=== PATIENT | female | born 1995 | race American Indian/Alaskan Native ===

== ENCOUNTER 2017-03-28 17:16 | Emergency (ER) | payer BC ==
[2017-03-28 17:22] VITALS: PULSE 91; TEMP 98.8; O2SAT 100
[2017-03-28] MEDS ORDERED: Naproxen 550 mg Tab PO STA (17:40)
[2017-03-28] MEDS ORDERED: Naproxen 550 mg Tab PO ONE (17:43)
--- NOTE | 2017-03-28 18:02 | RAD ---
PROCEDURE: Radiographs of the left elbow. HISTORY: Pain s/p injury yesterday COMPARISON: None available. FINDINGS: BONES: No acute displaced fracture. JOINTS: No dislocation. SOFT TISSUES: Unremarkable. No evidence of radiopaque foreign body. JOINT EFFUSION: No significant joint effusion. OTHER FINDINGS: None IMPRESSION: No acute displaced fracture, dislocation, or significant joint effusion identified. If symptoms persist, or if there is continued clinical concern, x-ray follow-up in 7-10 days should be considered.
--- NOTE | 2017-03-28 18:08 | C.PDOC ---
History Of Present Illness Pt fell from a chair at work yesterday injuring her left elbow. She c/o tingling in left forearm. Time Seen by Provider: 03/28/17 17:30 Chief Complaint (Nursing): Upper Extremity Problem/Injury History Per: Patient Onset/Duration Of Symptoms: Days (1) Current Symptoms Are (Timing): Still Present Quality: "Pain" Severity: Moderate Exacerbating Factor(s): Strenuous Use Of Affected Area, Movement Additional History Per: Prior Records Past Medical History Reviewed: Historical Data, Nursing Documentation, Vital Signs Vital Signs: Last Vital Signs Temp 98.8 F 03/28/17 17:17 Pulse 91 H 03/28/17 17:17 Resp 16 03/28/17 17:17 BP 145/90 03/28/17 17:17 Pulse Ox 100 03/28/17 18:10 - Medical History PMH: Anemia, Sickle Cell Disease (trait) Surgical History: No Surg Hx - [facility] Procedures PACKED CELL TRANSFUSION (10/14/14) Family History: States: Unknown Family Hx - Social History Hx Tobacco Use: No Hx Alcohol Use: No Hx Substance Use: No - Immunization History Hx Tetanus Toxoid Vaccination: No Hx Influenza Vaccination: No Hx Pneumococcal Vaccination: No Review Of Systems Except As Marked, All Systems Reviewed And Found Negative. Constitutional: Negative for: Fever, Weakness Cardiovascular: Negative for: Chest Pain Respiratory: Negative for: Shortness of Breath Gastrointestinal: Negative for: Vomiting, Abdominal Pain Musculoskeletal: Negative for: Neck Pain, Shoulder Pain, Back Pain, Hand Pain Skin: Negative for: Rash Neurological: Negative for: Weakness, Seizures, Altered Mental Status Physical Exam - Physical Exam Appears: Non-toxic, No Acute Distress Skin: Normal Color, Warm, Dry, No Rash Head: Atraumatic, Normacephalic Eye(s): bilateral: PERRL, EOMI Neck: Normal ROM, No Midline Cervical Tenderness, No Step Off Deformity, Supple Extremity: Normal ROM, Tenderness (mild at medial side of left elbow. There is some irritation when I tap the ulnar nerve at the left elbow.), Capillary Refill (wnl), No Deformity, No Swelling Extremity: Bilateral: Normal Color And Temperature Pulses: Left Radial: Normal Neurological/Psych: Oriented x3, Normal Motor, Normal Sensation ED Course And Treatment O2 Sat by Pulse Oximetry: 100 Pulse Ox Interpretation: Normal - Other Rad Left elbow x-rays X-Ray: Viewed By Me, Read By Radiologist Interpretation: IMPRESSION: No acute displaced fracture, dislocation, or significant joint effusion identified. Progress Note: Pt's left arm was placed in the sling by me. Reassessment Condition: Improved Disposition Counseled Patient/Family Regarding: Studies Performed, Diagnosis, Need For Followup, Rx Given - Disposition Referrals: Tr Tamayo DO [Staff Provider] - Yfn Beltre III, MD [Staff Provider] - Disposition: HOME/ ROUTINE Disposition Time: 18:15 Condition: STABLE Additional Instructions: Use sling for as instructed for comfort. Follow up with an orthopedic doctor in 1 week if still symptomatic. Return to the ER if you develop redness, swelling, weakness, worsening of symptoms or if you have any other concerns. Prescriptions: Naproxen [Naprosyn] 1 tab PO BID PRN #20 tab PRN Reason: Pain Instructions: Elbow Sprain (ED) Forms: [facility] [employer] (Icelandic) - Clinical Impression Clinical Impression: Ulnar neuropathy at elbow of left upper extremity, Fall from chair
[2017-03-28 18:29] VITALS: BP 138/85; RESP 15
== END 2017-03-28 18:28 | disposition home or self-care (01) ==
LOC: C.ER 17:16
DX: G56.22 Lesion of ulnar nerve, left upper limb (principal); W07.XXXA Fall from chair, initial encounter; Y93.9 Activity, unspecified; Y92.89 Other specified places as the place of occurrence of the external cause

== ENCOUNTER 2017-06-03 10:59 | Observation (INO) | payer BC ==
[2017-06-03] MEDS ORDERED: Sodium Chloride 0.9% 1,000 ML IV ONE (11:31)
--- NOTE | 2017-06-03 11:43 | C.PDOC ---
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 pt c/o bilateral tinnitus. 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 Time Seen by Provider: 06/03/17 11:24 Chief Complaint (Nursing): ENT Problem History Per: Patient History/Exam Limitations: None Onset/Duration Of Symptoms: Days (1) Current Symptoms Are (Timing): Worse Quality (Ear): Pain W/Touch, Other (tinnitus) Quality (Mouth/Throat): Tenderness, Swelling, Redness Symptoms Have Been: Continuous Pain Scale Rating Of: 8 Anticoagulant/Antiplatlet Use?: No Recent Aspirin Use: No Past Medical History Reviewed: Historical Data, Nursing Documentation, Vital Signs Vital Signs: Last Vital Signs Temp 99.3 F 06/03/17 11:01 Pulse 92 H 06/03/17 12:41 Resp 16 06/03/17 12:41 BP 138/71 06/03/17 12:41 Pulse Ox 100 06/03/17 14:09 - Medical History PMH: Anemia, Sickle Cell Disease (trait) Denies: Chronic Kidney Disease - [facility] Procedures PACKED CELL TRANSFUSION (10/14/14) Family History: States: Unknown Family Hx - Social History Hx Tobacco Use: No Hx Alcohol Use: No Hx Substance Use: No - Immunization History Hx Tetanus Toxoid Vaccination: No Hx Influenza Vaccination: No Hx Pneumococcal Vaccination: No Review Of Systems Constitutional: Negative for: Fever, Chills ENT: Positive for: Ear Pain, Throat Pain, Throat Swelling. Negative for: Ear Discharge, Nose Discharge Cardiovascular: Negative for: Chest Pain, Palpitations Respiratory: Negative for: Cough Neurological: Negative for: Weakness, Numbness Physical Exam - Physical Exam Appears: Other (bariatric female in obvious discomfort) Skin: Warm, Dry Head: Atraumatic, Normacephalic Eye(s): bilateral: Normal Inspection Ear(s): Left: Normal, Right: TM Erythema (mild erythema to tm and moderate erythema in canal) Nose: No Discharge Oral Mucosa: Moist Tongue: Normal Appearing, No Swelling Lips: Normal Appearing, No Swelling Throat: No Drooling, Other (markedly enlarged bilateral tonsils with mass posterior to right tonsil, tonsils not touching, no trismus. voice muffled. ) Lymphatic: Adenopathy (tender bilateral submandibular adenopathy) Cardiovascular: Rhythm Regular (tachycardic) Respiratory: No Decreased Breath Sounds, No Rales, No Rhonchi, No Wheezing ED Course And Treatment - Laboratory Results Result Diagrams: 06/03/17 12:05 06/03/17 12:05 O2 Sat by Pulse Oximetry: 100 Medical Decision Making Medical Decision Makin21 y/o female with muffled voice markedly enlarged tonsils; ct soft tissue neck with iv contrast to r/o captain canner[employer] tender [address] Riley. will admit pt to medicine. Discussed with Dr Rangel, (admits for Dr Tamayo), will admit to him. Disposition Discussed With .: Sarah Beth Rangel Doctor Will See Patient In The: Hospital - Disposition Disposition Time: 14:09 Condition: STABLE - Clinical Impression Clinical Impression: Abscess, peritonsillar
[2017-06-03 12:09] LABS: BASO # 0.1 K/uL (0.0-0.2); BASO % 0.4 % (0.0-2.0); EOS # 0.1 K/uL (0.0-0.7); EOS % 0.6 % (0.0-4.0); HEMATOCRIT 32.3 % (34.0-47.0); LYMPH # 1.8 K/uL (1.0-4.3); MEAN CELL VOLUME 67.9 fL (81.0-99.0); MEAN CORPUSCULAR HGB CONC 32.4 g/dL (33.0-37.0); MEAN PLATELET VOLUME 7.7 fL (7.2-11.7); MONO # 1.3 K/uL (0.0-0.8); MONO % 7.9 % (0.0-10.0); RED CELL DISTRIBUTION WIDTH 18.6 % (11.5-14.5); WHITE BLOOD COUNT 16.6 K/uL (4.8-10.8)
[2017-06-03 12:16] LABS: CHLORIDE 101 mmol/L (98-107)
[2017-06-03 12:17] LABS: POTASSIUM 3.9 mmol/L (3.6-5.2); SODIUM 135 mmol/L (132-148)
[2017-06-03 12:19] LABS: AST/SGOT 23 U/L (14-36); BILIRUBIN,TOTAL 0.5 mg/dL (0.2-1.3); CARBON DIOXIDE 26 mmol/L (22-30); GFR AFRICAN-AMERICAN > 60
[2017-06-03 12:20] LABS: ALB/GLOB RATIO 0.8 (1.0-2.1); ALKALINE PHOSPHATASE 137 U/L (38-126); ALT/SGPT 29 U/L (9-52); BLOOD UREA NITROGEN 5 mg/dL (7-17); CALCIUM 8.8 mg/dl (8.6-10.4); GLUCOSE,RANDOM 102 mg/dL (65-105); TOTAL PROTEIN 8.8 g/dL (6.3-8.3)
[2017-06-03] MEDS ORDERED: Iohexol 300 100 ML IJ ONE (12:55)
--- NOTE | 2017-06-03 13:48 | CT ---
PROCEDURE: CT NECK WITH CONTRAST HISTORY: right tonsillar swelling COMPARISON: None TECHNIQUE: CT of the neck with intravenous contrast. Coronal and sagittal reformats generated. Intravenous contrast dose: 100 mL of Omnipaque 300 Radiation dose: DLP 568.51 mGy-cm This CT exam was performed using one or more of the following dose reduction techniques: Automated exposure control, adjustment of the mA and/or kV according to patient size, and/or use of iterative reconstruction technique. FINDINGS: NASOPHARYNX: Diffuse thickening of the posterior nasopharynx is noted SUPRAHYOID NECK: There is moderate enlargement of the right tonsil associated with foci of low-attenuation likely represent phlegmon. There is mild to moderate narrowing of the upper airway and right oropharynx wall thickening. Alteration of the right vallecula and right piriform sinus is noted could be due to secretion or mucosal thickening. Otherwise the naso oral pharynx is unremarkable. INFRAHYOID NECK: Unremarkable larynx, hypopharynx, and supraglottic space. Vocal cords intact. MASS: None. GLANDS: Parotid and submandibular glands unremarkable. Normal size thyroid gland, without nodule. LYMPH NODES: [id number] enlarged upper neck lymph nodes seen right more than left. CERVICAL SPINE: No fracture or focal lesion. VASCULAR STRUCTURES: Unremarkable. OTHER FINDINGS: None. IMPRESSION: Moderate enlargement of the right tonsil. Focal low attenuation seen at the region of the right tonsil likely represent phlegmon. The possibility of an early abscess formation is not totally excluded. Mucosal thickening and secretions seen at the right aspect of the oropharynx as described above. [id number] enlarged upper neck lymph nodes specially at the right sided level 2 noted.
[2017-06-03 17:15] VITALS: RESP 20
--- NOTE | 2017-06-03 19:45 | CP.PCM.HP ---
Past Patient History - Past Medical History & Family History Past Medical History?: Yes - Past Social History Smoking Status: Never Smoked - CARDIAC Hx Cardiac Disorders: No - PULMONARY Hx Respiratory Disorders: No - NEUROLOGICAL Hx Neurological Disorder: No - HEENT Other/Comment: pt states chronic sore throats - RENAL Hx Chronic Kidney Disease: No - ENDOCRINE/METABOLIC Hx Endocrine Disorders: No - HEMATOLOGICAL/ONCOLOGICAL Hx Anemia: Yes - INTEGUMENTARY Hx Dermatological Problems: No - MUSCULOSKELETAL/RHEUMATOLOGICAL Hx Musculoskeletal Disorders: No Hx Falls: No - GASTROINTESTINAL Hx Gastrointestinal Disorders: No - GENITOURINARY/GYNECOLOGICAL Hx Genitourinary Disorders: Yes Other/Comment: hx of PCOS - PSYCHIATRIC Hx Psychophysiologic Disorder: No Hx Substance Use: No - SURGICAL HISTORY Hx Surgeries: Yes Hx Dilation and Curettage: Yes Other/Comment: ADAMARIS - ANESTHESIA Hx Anesthesia: Yes Hx Anesthesia Reactions: No Hx Malignant Hyperthermia: No Meds Allergies/Adverse Reactions: Allergies Allergy/AdvReac Type Severity Reaction Status Date / Time CHOCOLATE Allergy Severe ANAPHYLAXIS Uncoded 06/03/17 11:04 Results - Vital Signs Recent Vital Signs: Last Vital Signs Temp 99.3 F 06/03/17 17:14 Pulse 94 H 06/03/17 17:14 Resp 20 06/03/17 17:14 BP 130/72 06/03/17 17:14 Pulse Ox 98 06/03/17 17:14 - Labs Result Diagrams: 06/03/17 12:05 06/03/17 12:05 Labs: Laboratory Results - last 24 hr 06/03/17 06/03/17 06/03/17 11:25 12:05 12:05 WBC 16.6 H RBC 4.76 Hgb 10.5 L Hct 32.3 L MCV 67.9 L D MCH 22.0 L MCHC 32.4 L RDW 18.6 H Plt Count 360 MPV 7.7 Neut % (Auto) 80.1 H Lymph % (Auto) 11.0 L Meade % (Auto) 7.9 Eos % (Auto) 0.6 Baso % (Auto) 0.4 Neut # 13.3 H Lymph # 1.8 Meade # 1.3 H Eos # 0.1 Baso # 0.1 Differential Comment Sodium 135 Potassium 3.9 Chloride 101 Carbon Dioxide 26 Anion Gap 12 BUN 5 L Creatinine 0.5 L Est GFR ( Amer) > 60 Est GFR (Non-Af Amer) > 60 Random Glucose 102 Calcium 8.8 Total Bilirubin 0.5 AST 23 ALT 29 Alkaline Phosphatase 137 H Total Protein 8.8 H Albumin 3.8 Globulin 5.0 H Albumin/Globulin Ratio 0.8 L Grp A Beta Strep Ag Negative
[2017-06-03] MEDS: Clindamycin 600mg/50ml NS 600 MG/50 ML BAG IVPB SCH (19:58)
[2017-06-03] MEDS ORDERED: Clindamycin 600 MG in Sodium Chloride 0.9% 100 ML IV SCH (20:00)
[2017-06-03] MEDS: Acetaminophen 650mg/20.3ml solution UD PO PRN (21:29)
[2017-06-04 01:01] VITALS: O2SAT 100
[2017-06-04] MEDS: Clindamycin 600mg/50ml NS 600 MG/50 ML BAG IVPB SCH ×2 (04:12→12:37)
[2017-06-04] MEDS ORDERED: Lidocaine 1%/Epinephrine 1:100000 30 ml vial IJ ONE (08:30)
[2017-06-04] MEDS: Acetaminophen 650mg/20.3ml solution UD PO PRN ×2 (09:08→15:07)
--- NOTE | 2017-06-04 10:59 | OP ---
PROCEDURE DATE: 06/04/2017 PREOPERATIVE DIAGNOSIS: Right peritonsillar abscess. POSTOPERATIVE DIAGNOSIS: Right peritonsillar abscess. PROCEDURE: Incision and drainage of right peritonsillar abscess. SIGNIFICANT FINDINGS: Right peritonsillar abscess. DESCRIPTION OF PROCEDURE: The patient was placed in a seated position. Right peritonsillar area was injected with lidocaine with epinephrine. An incision was made in the right peritonsillar area using #11 blade, clamp dissected dissection done, pus was noted coming out, loculations were broken with the clamp and bleeding was controlled with time. The patient tolerated the procedure well. Rocky Riley MD MTDD
--- NOTE | 2017-06-04 14:06 | CP.PCM.PN ---
Subjective - Date & Time of Evaluation Date of Evaluation: 06/04/17 Time of Evaluation: 14:03 - Subjective Subjective: PT SEEN AND EXAMINED TODAY, RESPIRATION EASY AND UNLABORED. NAD Objective - Vital Signs/Intake and Output Vital Signs (last 24 hours): Temp Pulse Resp BP Pulse Ox 98 F 84 20 110/67 100 06/04/17 08:01 06/04/17 08:01 06/04/17 08:01 06/04/17 08:01 06/04/17 08:01 Intake and Output: 06/04/17 06/04/17 06:59 18:59 Intake Total 550 Balance 550 - Medications Medications: Current Medications Acetaminophen (Tylenol 650mg/20.3ml Solution Ud) 650 mg PO Q6 PRN PRN Reason: Pain, moderate (4-7) Last Admin: 06/04/17 09:08 Dose: 650 mg Clindamycin Phosphate (Cleocin In Normal Saline Addvantage) 600 mg in 50 mls @ 100 mls/hr IVPB Q8H AIDEE Last Admin: 06/04/17 12:37 Dose: 100 mls/hr Pneumococcal Polyvalent Vaccine (Pneumovax 23 Vaccine) 0.5 ml IM .ONCE ONE Stop: 06/06/17 10:01 - Labs Labs: 06/03/17 12:05 06/03/17 12:05 Assessment and Plan - Assessment and Plan (Free Text) Plan: 21 Y/O FEMALE ADMITTED FOR PERITONSILLAR ABSCESS I & D DONE BY DR GARG TODAY- PT TOLERATED WELL TOLERATING LIQUID DIET, NO DROOLING, AFEBRIL, NON-TOXIC PT CLEARED FOR D/C PER DR GARG AND DR HINSON CLINDAMYCIN 300 MG PO QID FOR 7 DAYS - PER DR HINSON F/U WITH PMD AND ENT RETURN TO ER FOR ANY WORSENING S/S AGREE, VERBALIZE UNDERSTANDING
[2017-06-04 16:46] VITALS: BP 125/81; PULSE 73; TEMP 98.7
[2017-06-04] MEDS ORDERED: Pneumococcal 23-Valent Vaccine IM ONE (17:00)
[2017-06-06] MEDS ORDERED: Influenza Vaccine 60 mcg/0.5 mL SYR (4YR UP) IM ONE (10:00)
== END 2017-06-04 17:34 | disposition home or self-care (01) ==
LOC: C.ER 10:59 → C.9E 14:08 → C.3T 16:12
PROVIDERS: ADMIT Internal Medicine Critical Care Medicine; ATTEND Internal Medicine Critical Care Medicine
DX: J36 Peritonsillar abscess (principal); R13.10 Dysphagia, unspecified; J35.1 Hypertrophy of tonsils; D57.1 Sickle-cell disease without crisis
CPT/HCPCS: 42700; 70491; 80053; 85025; 87040; 87070; 87430; 96365; 96366; 96375; 99285; G0378; J1100; J1885; J7040; Q9967

== ENCOUNTER → 2017-10-09 19:29 | Emergency (ER) | payer BC | END | disposition left against medical advice (07) | LOC: C.ER 19:29 | DX: Z02.89 Encounter for other administrative examinations (principal); N93.9 Abnormal uterine and vaginal bleeding, unspecified ==

== ENCOUNTER 2018-01-10 09:50 | Emergency (ER) | payer BC ==
[2018-01-10 09:55] VITALS: RESP 20
--- NOTE | 2018-01-10 10:27 | C.PDOC ---
History Of Present Illness 22 years old female with history of anemia presents to the ED complaining of sharp pain and tingling to her left index finger that radiates to her writs onset 4 days. patient reports she has taken her fake nail off yesterday. She denies any injury. PMD: Tr Tamayo Time Seen by Provider: 01/10/18 10:09 Chief Complaint (Nursing): Finger,Hand,&Wrist History Per: Patient History/Exam Limitations: no limitations Onset/Duration Of Symptoms: Days (4) Quality: Sharp Past Medical History Reviewed: Historical Data, Nursing Documentation, Vital Signs Vital Signs: Last Vital Signs Temp 98.4 F 01/10/18 10:31 Pulse 88 01/10/18 10:31 Resp 20 01/10/18 10:31 BP 142/87 01/10/18 10:31 Pulse Ox 100 01/10/18 10:31 - Medical History PMH: Anemia, Sickle Cell Disease (trait) Denies: Chronic Kidney Disease Surgical History: No Surg Hx - [facility] Procedures PACKED CELL TRANSFUSION (10/14/14) Family History: States: Unknown Family Hx - Social History Hx Tobacco Use: No Hx Alcohol Use: No Hx Substance Use: No - Immunization History Hx Tetanus Toxoid Vaccination: No Hx Influenza Vaccination: No Hx Pneumococcal Vaccination: No Review Of Systems Except As Marked, All Systems Reviewed And Found Negative. Musculoskeletal: Positive for: Arm Pain (left), Hand Pain (Left index finger) Physical Exam - Physical Exam Extremity: Other (Left hand edema. No redness or drainage. Patient has long fake nails except for the one with pain.) Neurological/Psych: Oriented x3 ED Course And Treatment O2 Sat by Pulse Oximetry: 99 (RA) Pulse Ox Interpretation: Normal Medical Decision Making Medical Decision Making: Time: 1024 Initial Plan: --Infants Tylenol 325 mg PO --Motrin 600 mg PO Disposition Counseled Patient/Family Regarding: Diagnosis, Need For Followup, Rx Given - Disposition Referrals: [facility] [Outside] Disposition: HOME/ ROUTINE Disposition Time: 10:25 Condition: STABLE Additional Instructions: Take medications as indicated. Follow up with your doctor or our clinic. Prescriptions: Cephalexin [Keflex] 500 mg PO TID #40 capsule Ibuprofen [Motrin] 600 mg PO TID #15 tab Forms: [employer] (Bengali), Work Excuse - POA Present On Arrival: None - Clinical Impression Clinical Impression: Finger infection - Scribe Statement The provider has reviewed the documentation as recorded by the Scribe (Mandy Beltran)
[2018-01-10 10:32] VITALS: BP 142/87; PULSE 88; TEMP 98.4
[2018-01-10 10:49] VITALS: O2SAT 99
== END 2018-01-10 10:32 | disposition home or self-care (01) ==
LOC: C.ER 09:50
DX: L08.9 Local infection of the skin and subcutaneous tissue, unspecified (principal)